=== PATIENT | male | born 1935 | race Caucasian/White ===

== ENCOUNTER 2017-08-04 17:50 | Emergency (ER) | payer MEDICARE, OTHER ==
[2017-08-04] MEDS ORDERED: fentaNYL 100 MCG/2 ML SDV IVPUSH ONE (18:59)
--- NOTE | 2017-08-04 19:04 | EDM.PDOC ---
ED HPI GENERAL MEDICAL PROBLEM - General Chief Complaint: Abdominal Pain Stated Complaint: MEDICAL [facility]IA [facility] Time Seen by Provider: 08/04/17 18:52 Source of Information: Reports: Patient, RN Notes Reviewed History Limitations: Reports: No Limitations - History of Present Illness INITIAL COMMENTS - FREE TEXT/NARRATIVE: 82-year-old gentleman presents to the emergency department with complaint of epigastric pain via EMS services, he states he's had pain for about a week is progressively gotten worse, his biggest issue is when he takes a deep breath he has very sharp stabbing pain and will get some epigastric discomfort as well, he still passing gas no nausea or vomiting no diaphoresis Chest Pain Score (Numeric/FACES): 7 - Related Data Allergies Allergy/AdvReac Type Severity Reaction Status Date / Time acetaminophen [From Tylox] Allergy Confusion Verified 08/04/17 20:12 oxycodone Allergy Confusion Verified 08/04/17 18:05 Home Meds: Home Meds Ascorbate Calcium [Vitamin C] 500 mg PO DAILY 08/04/17 [History] Ascorbic Acid [Vitamin C] 500 mg PO DAILY 08/04/17 [History] Aspirin 81 mg PO DAILY 08/04/17 [History] Budesonide [Pulmicort] 0.5 mg INH BID 08/04/17 [History] Calcium Carbonate [Calcium] 60 mg PO DAILY 08/04/17 [History] Cholecalciferol (Vitamin D3) [Vitamin D3] 1,000 mg PO DAILY 08/04/17 [History] Cholecalciferol (Vitamin D3) [Vitamin D3] 1,000 unit PO DAILY 08/04/17 [History] Megestrol [Megace] 1 tab PO QAM 08/04/17 [History] Metoprolol Tartrate 1 tab PO DAILY 08/04/17 [History] Multivitamin [Multivitamins] 1 tab PO DAILY 08/04/17 [History] Omeprazole 2 tab PO QAM 08/04/17 [History] Venlafaxine HCl [Venlafaxine ER] 1 cap PO QAM 08/04/17 [History] Vitamin E 400 mg PO DAILY 08/04/17 [History] Past Medical History HEENT History: Reports: Hard of Hearing, Impaired Vision Respiratory History: Reports: COPD Genitourinary History: Reports: Prostate Disorder Musculoskeletal History: Reports: Arthritis 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 Oncologic (Cancer) History: Reports: Prostate - Past Surgical History Other Cardiovascular Surgeries/Procedures: aortic anurism Male Surgical History: Reports: Prostatectomy Other Male Surgeries/Procedures: testivles removed from cancer Musculoskeletal Surgical History: Reports: Arthroscopic Knee, Hip Replacement, Knee Replacement Social & Family History - Tobacco Use Smoking Status *Q: Never Smoker - Caffeine Use Caffeine Use: Reports: Coffee - Recreational Drug Use Recreational Drug Use: No ED ROS GENERAL - Review of Systems Review Of Systems: See Below Constitutional: Reports: No Symptoms HEENT: Reports: No Symptoms Respiratory: Reports: Shortness of Breath. Denies: Cough, Sputum Cardiovascular: Reports: Chest Pain (With a deep breath) GI/Abdominal: Reports: Abdominal Pain (Epigastric region), Flatus. Denies: Nausea, Vomiting : Reports: No Symptoms Musculoskeletal: Reports: No Symptoms Skin: Reports: No Symptoms Neurological: Reports: No Symptoms ED EXAM, GENERAL - Physical Exam Exam: See Below Exam Limited By: No Limitations General Appearance: Alert, WD/WN, No Apparent Distress Eye Exam: Bilateral Eye: Normal Inspection Nose: Normal Inspection, Normal Mucosa, No Blood Throat/Mouth: Normal Inspection, Normal Lips, Normal Gums, Normal Oropharynx, Normal Voice, No Airway Compromise, Other (Dentures) Head: Atraumatic, Normocephalic Neck: Normal Inspection, Supple, Non-Tender, Full Range of Motion Respiratory/Chest: No Respiratory Distress, No Accessory Muscle Use, Chest Non- Tender, Decreased Breath Sounds Cardiovascular: Regular Rate, Rhythm, No Murmur GI/Abdominal: Soft, Non-Tender Extremities: Normal Inspection, Normal Range of Motion, Non-Tender, No Pedal Edema Course - Vital Signs Last Recorded V/S: Last Vital Signs Temp 98.2 F 08/04/17 18:11 Pulse 74 08/04/17 21:01 Resp 21 H 08/04/17 21:01 BP 148/97 H 08/04/17 21:01 Pulse Ox 100 08/04/17 21:01 - Orders/Labs/Meds Orders: Active Orders 24 hr Category Date Time Status Cardiac Monitoring [RC] .As Directed Care 08/04/17 18:58 Active Peripheral IV Care [RC] . DIRECTED Care 08/04/17 18:59 Active Ang Chest [CT] Stat Exams 08/04/17 20:03 Taken Chest 1V Frontal [CR] Stat Exams 08/04/17 18:59 Taken Iopamidol [Isovue-370 (76%)] Med 08/04/17 20:15 Active 100 ml IV . DIRECTED Sodium Chloride 0.9% [Normal Saline] 80 ml Med 08/04/17 20:15 Active IV ASDIRECTED Sodium Chloride 0.9% [Saline Flush] Med 08/04/17 18:58 Active 10 ml FLUSH ASDIRECTED PRN Peripheral IV Insertion Adult [OM.PC] Stat Oth 08/04/17 18:58 Ordered Saline Lock Insert [OM.PC] Stat Oth 08/04/17 18:58 Ordered Medication Orders Sodium Chloride (Normal Saline) 80 mls @ 3 mls/sec IV ASDIRECTED MEERA Last Admin: 08/04/17 21:00 Dose: 3 mls/sec Iopamidol (Isovue-370 (76%)) 100 ml IV . DIRECTED [facility] Last Admin: 08/04/17 21:00 Dose: 100 ml Sodium Chloride (Saline Flush) 10 ml FLUSH ASDIRECTED PRN PRN Reason: Keep Vein Open Last Admin: 08/04/17 21:00 Dose: 10 ml Admin: 08/04/17 19:06 Dose: 10 ml Labs: Laboratory Tests 08/04/17 08/04/17 08/04/17 Range/Units 18:58 18:58 18:58 WBC 5.9 (4.5-11.0) K/uL RBC 4.55 (4.30-5.90) M/uL Hgb 13.7 (12.0-15.0) g/dL Hct 42.0 (40.0-54.0) % MCV 92 (80-98) fL MCH 30 (27-31) pg MCHC 33 (32-36) % Plt Count 225 (150-400) K/uL Neut % (Auto) 73 H (36-66) % Lymph % (Auto) 15 L (24-44) % [place] % (Auto) 10 H (2-6) % Eos % (Auto) 3 (2-4) % Baso % (Auto) 0 (0-1) % D-Dimer, Quantitative 1830 H (0.0-400.0) ng/mL Sodium 140 (140-148) mmol/L Potassium 4.1 (3.6-5.2) mmol/L Chloride 105 (100-108) mmol/L Carbon Dioxide 32 (21-32) mmol/L Anion Gap 3.4 L (5.0-14.0) mmol/L BUN 20 H (7-18) mg/dL Creatinine 1.3 (0.8-1.3) mg/dL Est Cr Clr Drug Dosing 41.61 mL/min Estimated GFR (MDRD) 53 L (>60) Glucose 84 (74-106) mg/dL Lactic Acid (0.4-2.0) mmol/L Calcium 9.3 (8.5-10.1) mg/dL Total Bilirubin 0.4 (0.2-1.0) mg/dL AST 20 (15-37) U/L ALT 21 (12-78) U/L Alkaline Phosphatase 87 (46-116) U/L Troponin I < 0.017 (0.000-0.056) ng/mL NT-Pro-B Natriuret Pep 264 (5-450) pg/mL Total Protein 7.4 (6.4-8.2) g/dL Albumin 3.3 L (3.4-5.0) g/dL Globulin 4.1 H (2.3-3.5) g/dL Albumin/Globulin Ratio 0.8 L (1.2-2.2) 08/04/17 Range/Units 18:58 WBC (4.5-11.0) K/uL RBC (4.30-5.90) M/uL Hgb (12.0-15.0) g/dL Hct (40.0-54.0) % MCV (80-98) fL MCH (27-31) pg MCHC (32-36) % Plt Count (150-400) K/uL Neut % (Auto) (36-66) % Lymph % (Auto) (24-44) % [place] % (Auto) (2-6) % Eos % (Auto) (2-4) % Baso % (Auto) (0-1) % D-Dimer, Quantitative (0.0-400.0) ng/mL Sodium (140-148) mmol/L Potassium (3.6-5.2) mmol/L Chloride (100-108) mmol/L Carbon Dioxide (21-32) mmol/L Anion Gap (5.0-14.0) mmol/L BUN (7-18) mg/dL Creatinine (0.8-1.3) mg/dL Est Cr Clr Drug Dosing mL/min Estimated GFR (MDRD) (>60) Glucose (74-106) mg/dL Lactic Acid 1.4 (0.4-2.0) mmol/L Calcium (8.5-10.1) mg/dL Total Bilirubin (0.2-1.0) mg/dL AST (15-37) U/L ALT (12-78) U/L Alkaline Phosphatase (46-116) U/L Troponin I (0.000-0.056) ng/mL NT-Pro-B Natriuret Pep (5-450) pg/mL Total Protein (6.4-8.2) g/dL Albumin (3.4-5.0) g/dL Globulin (2.3-3.5) g/dL Albumin/Globulin Ratio (1.2-2.2) Meds: Medications Generic Name Dose Route Start Last Admin Trade Name Freq PRN Reason Stop Dose Admin Sodium Chloride 80 mls @ 3 mls/sec 08/04/17 20:15 08/04/17 21:00 Normal Saline IV 3 mls/sec ASDIRECTED MEERA Administration Iopamidol 100 ml 08/04/17 20:15 08/04/17 21:00 Isovue-370 (76%) IV 100 ml . DIRECTED MEERA Administration Sodium Chloride 10 ml 08/04/17 18:58 08/04/17 21:00 Saline Flush FLUSH 10 ml ASDIRECTED PRN Administration Keep Vein Open Discontinued Medications Generic Name Dose Route Start Last Admin Trade Name Freq PRN Reason Stop Dose Admin Fentanyl 50 mcg 08/04/17 18:59 08/04/17 19:05 Sublimaze IVPUSH 08/04/17 19:00 50 mcg ONETIME ONE Administration Departure - Departure Time of Disposition: 21:53 Disposition: Home, Self-Care 01 Condition: Fair Clinical Impression: COPD exacerbation Referrals: PCP,None [Primary Care Provider] - Forms: ED Department Discharge Additional Instructions: Take full course of antibiotics, take full course of steroids, use ibuprofen for baseline pain control use hydrocodone for breakthrough pain, please follow- up with your primary care provider for reevaluation in the next 2-3 days - My Orders Last 24 Hours: My Active Orders 08/04/17 18:58 Cardiac Monitoring [RC] .As Directed Sodium Chloride 0.9% [Saline Flush] 10 ml FLUSH ASDIRECTED PRN Peripheral IV Insertion Adult [OM.PC] Stat Saline Lock Insert [OM.PC] Stat 08/04/17 18:59 Peripheral IV Care [RC] . DIRECTED Chest 1V Frontal [CR] Stat 08/04/17 20:03 Ang Chest [CT] Stat 08/04/17 20:15 Iopamidol [Isovue-370 (76%)] 100 ml IV . DIRECTED Sodium Chloride 0.9% [Normal Saline] 80 ml IV ASDIRECTED - Assessment/Plan Last 24 Hours: My Active Orders 08/04/17 18:58 Cardiac Monitoring [RC] .As Directed Sodium Chloride 0.9% [Saline Flush] 10 ml FLUSH ASDIRECTED PRN Peripheral IV Insertion Adult [OM.PC] Stat Saline Lock Insert [OM.PC] Stat 08/04/17 18:59 Peripheral IV Care [RC] . DIRECTED Chest 1V Frontal [CR] Stat 08/04/17 20:03 Ang Chest [CT] Stat 08/04/17 20:15 Iopamidol [Isovue-370 (76%)] 100 ml IV . DIRECTED Sodium Chloride 0.9% [Normal Saline] 80 ml IV ASDIRECTED Plan: Assessment Acuity = acute Site and laterality = COPD exacerbation Etiology = unclear etiology Manifestations = none Location of injury = Home Lab values = CBC unremarkable, [place] [id number] unclear significance, troponin is negative, BMP within normal limits remainder CMP within normal limits CT scan of the chest shows no acute process no pulmonary embolism Plan I did review lab work CT scan results with him because of his history of COPD I think it's worth a trial of antibiotics and prednisone along with some pain medication for deep breath, he received fentanyl in the emergency department which provided good relief he'll follow-up with primary care in the next 2-3 days for reevaluation, prescription written for azithromycin 5 day course, prednisone tapering dose and hydrocodone 5/325 one tablet by mouth 3 times a day when necessary total #6 This note was dictated using [employer] voice recognition software please call with any questions on syntax or grammar.
[2017-08-04] MEDS: Sodium Chloride 0.9% 10 ML Syringe FLUSH PRN ×2 (19:06→21:00)
[2017-08-04] MEDS ORDERED: Iopamidol 755 Mg/ML 100 ML Bottle IV SCH (20:15)
[2017-08-04] MEDS ORDERED: Sodium Chloride 0.9% 80 ML IV SCH (20:15)
--- NOTE | 2017-08-05 08:49 | CR ---
CHEST: Portable CLINICAL HISTORY:Elevated d-dimer COMPARISON:None FINDINGS: There is less than optimal inspiration. This exaggerates basilar lung markings. There is s ome generalized interstitial prominence. Some of this is chronic. IMPRESSION: Prominent interstitial markings. Some of this is likely chronic the such is patchy fibro sis and scarring. It is exaggerated by poor inspiratory level
== END 2017-08-04 22:24 | disposition home or self-care (01) ==
LOC: JP.ED 17:50
DX: J44.1 Chronic obstructive pulmonary disease with (acute) exacerbation (principal); Z88.6 Allergy status to analgesic agent; Z88.5 Allergy status to narcotic agent; Z79.82 Long term (current) use of aspirin; Z79.899 Other long term (current) drug therapy
CPT/HCPCS: 36415; 71045; 71275; 80053; 83605; 83880; 84484; 85025; 85379; 96374; 99285; J3010; J7030; J7050; Q9967; 99284

== ENCOUNTER 2019-10-09 17:36 | Emergency (ER) | payer MEDICAID, MEDICARE ==
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
[2019-10-09] MEDS ORDERED: predniSONE 20 MG Tab PO ONE (19:31)
== END 2019-10-09 19:59 | disposition home or self-care (01) ==
LOC: JP.ED 17:36
DX: M35.3 Polymyalgia rheumatica (principal); J44.9 Chronic obstructive pulmonary disease, unspecified; M19.90 Unspecified osteoarthritis, unspecified site; I45.10 Unspecified right bundle-branch block; Z88.6 Allergy status to analgesic agent; Z88.5 Allergy status to narcotic agent; Z79.899 Other long term (current) drug therapy; Z79.82 Long term (current) use of aspirin
CPT/HCPCS: 36415; 80048; 84484; 85027; 85651; 93005; 99285; J7512

== ENCOUNTER 2019-10-23 15:05 | Inpatient (IN) | payer MEDICARE ==
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
[2019-10-23] MEDS ORDERED: Magnesium Hydroxide 400 MG/5 ML Susp 30 ML Cup PO PRN (18:19)
[2019-10-23] MEDS ORDERED: Ondansetron 4 MG/2 ML SDV IV PRN (18:19)
[2019-10-23] MEDS ORDERED: Ondansetron 4 MG Tab.DIS PO PRN (18:19)
[2019-10-23] MEDS ORDERED: Albuterol 0.083% 2.5 MG/3 ML Neb Soln NEB PRN (18:19)
[2019-10-23] MEDS ORDERED: LORazepam 2 MG/ML SDV IVPUSH PRN (18:19)
[2019-10-23] MEDS: Albuterol/Ipratropium 3.0-0.5 MG/3 ML Neb Soln NEB SCH (20:22)
[2019-10-23] MEDS: Melatonin 3 MG Tab PO SCH (20:22)
[2019-10-23] MEDS ORDERED: Ketoconazole 2% Crm 30 GM Tube TOP PRN (21:05)
[2019-10-23] MEDS: Acetaminophen/HYDROcodone 325-5 MG Tab PO PRN (21:45)
[2019-10-23] MEDS: Donepezil 10 MG Tab PO SCH (21:46)
[2019-10-24] MEDS: Albuterol/Ipratropium 3.0-0.5 MG/3 ML Neb Soln NEB SCH ×4 (07:31→20:42)
[2019-10-24] MEDS: Venlafaxine 75 MG Cap.ER PO SCH (08:51)
[2019-10-24] MEDS: Cholecalciferol (Vitamin D3) 25 MCG Tab PO SCH (08:52)
[2019-10-24] MEDS: Aspirin 81 MG Tab.Chew PO SCH (08:52)
[2019-10-24] MEDS: Ascorbic Acid 500 MG Tab PO SCH (08:52)
[2019-10-24] MEDS: Lidocaine 5% 700 MG Patch TOP SCH (08:52)
[2019-10-24] MEDS: Pantoprazole 40 MG Tab.CR PO SCH (08:52)
[2019-10-24] MEDS: Megestrol 40 MG Tab PO SCH (08:52)
[2019-10-24] MEDS: Multivitamins with Iron/Calcium/Folic Acid/Minerals Tab PO SCH (08:52)
[2019-10-24] MEDS: Calcium Carbonate 500 MG Tab.Chew PO SCH (08:52)
[2019-10-24] MEDS: Acetaminophen/HYDROcodone 325-5 MG Tab PO PRN (08:53)
[2019-10-24] MEDS ORDERED: VITAMIN E 400 MG PO SCH (09:00)
[2019-10-24] MEDS ORDERED: Tiotropium Bromide 4 GM Inhalation Spray INH SCH (09:00)
[2019-10-24] MEDS ORDERED: Budesonide 0.5 MG/2 ML Neb Susp INH SCH (09:00)
[2019-10-24] MEDS ORDERED: predniSONE 10 MG Tab PO SCH (09:00)
[2019-10-24] MEDS: Budesonide 0.5 MG/2 ML Neb Susp INH SCH ×2 (09:07→21:11)
[2019-10-24] MEDS: Tiotropium Bromide 4 GM Inhalation Spray INH SCH (09:08)
[2019-10-24] MEDS: Metoprolol Tartrate 25 MG Tab PO SCH (11:36)
--- NOTE | 2019-10-24 12:11 | PCM.PN ---
- General Info Date of Service: 10/24/19 Subjective Update: No acute issues overnight. Pain is controlled at this time. Pain does increase when he moves around but overall pain is very tolerable. Vitals are stable. Baseline labs unremarkable last night. No behavior issues. Respiratory status stable. Functional Status: Reports: Pain Controlled, Tolerating Diet - Review of Systems General: Denies: Fever - Patient Data Vitals - Most Recent: Last Vital Signs Temp 37.0 C 10/24/19 10:06 Pulse 91 10/24/19 11:36 Resp 18 10/24/19 10:06 BP 115/76 10/24/19 11:36 Pulse Ox 95 10/24/19 11:15 Weight - Most Recent: 83.915 kg I&O - Last 24 Hours: Intake & Output 10/23/19 10/24/19 10/24/19 22:59 06:59 14:59 Intake Total 296 910 Output Total 225 100 Balance -225 196 910 Lab Results Last 24 Hours: Laboratory Results - last 24 hr 10/23/19 10/23/19 Range/Units 18:25 18:25 WBC 9.6 (4.5-11.0) K/uL RBC 4.56 (4.30-5.90) M/uL Hgb 12.8 (12.0-15.0) g/dL Hct 40.9 (40.0-54.0) % MCV 90 (80-98) fL MCH 28 (27-31) pg MCHC 31 L (32-36) % Plt Count 69 L (150-400) K/uL Sodium 143 (140-148) mmol/L Potassium 4.5 (3.6-5.2) mmol/L Chloride 105 (100-108) mmol/L Carbon Dioxide 31 (21-32) mmol/L Anion Gap 6.7 (5.0-14.0) mmol/L BUN 19 H (7-18) mg/dL Creatinine 1.4 H (0.8-1.3) mg/dL Est Cr Clr Drug Dosing 35.41 mL/min Estimated GFR (MDRD) 48 L (>60) Glucose 130 H (74-106) mg/dL Calcium 9.5 (8.5-10.1) mg/dL Med Orders - Current: Current Medications Hydrocodone Bitart/Acetaminophen ([place] 325-5 Mg) 1 tab PO Q4H PRN PRN Reason: Pain Last Admin: 10/24/19 08:53 Dose: 1 tab Documented by: Albuterol (Proventil Neb Soln) 2.5 mg NEB Q4H PRN PRN Reason: Shortness Of Breath/wheezing Albuterol/Ipratropium (Duoneb 3.0-0.5 Mg/3 Ml) 3 ml NEB QIDRT [facility] Last Admin: 10/24/19 11:14 Dose: 3 ml Documented by: Ascorbic Acid (Vitamin C) 500 mg PO DAILY [facility] Last Admin: 10/24/19 08:52 Dose: 500 mg Documented by: Aspirin (Aspirin) 81 mg PO DAILY [facility] Last Admin: 10/24/19 08:52 Dose: 81 mg Documented by: Budesonide (Pulmicort) 0.5 mg INH BIDRT [facility] Last Admin: 10/24/19 09:07 Dose: 0.5 mg Documented by: Calcium Carbonate/Glycine (Tums) 500 mg PO DAILY [facility] Last Admin: 10/24/19 08:52 Dose: 500 mg Documented by: Cholecalciferol (Vitamin D3) 25 mcg PO DAILY [facility] Last Admin: 10/24/19 08:52 Dose: 25 mcg Documented by: Donepezil HCl (Aricept) 10 mg PO BEDTIME [facility] Last Admin: 10/23/19 21:46 Dose: 10 mg Documented by: Ketoconazole (Nizoral 2% Crm) 0 gm TOP DAILY PRN PRN Reason: Rash Lidocaine (Lidoderm 5%) 700 mg TOP DAILY [facility] Last Admin: 10/24/19 08:52 Dose: 700 mg Documented by: Lorazepam (Ativan) 0.5 mg IVPUSH Q4H PRN PRN Reason: Nausea/Vomiting Magnesium Hydroxide (Milk Of Magnesia) 30 ml PO Q12H PRN PRN Reason: Constipation Megestrol Acetate (Megace) 40 mg PO QAM [facility] Last Admin: 10/24/19 08:52 Dose: 40 mg Documented by: Melatonin (Melatonin) 9 mg PO BEDTIME [facility] Last Admin: 10/23/19 20:22 Dose: 9 mg Documented by: Metoprolol Tartrate (Lopressor) 25 mg PO DAILY [facility] Last Admin: 10/24/19 11:36 Dose: 25 mg Documented by: Miscellaneous Information (Remove Patch) 1 ea TRDERM BEDTIME [facility] Multivitamins/Minerals (Thera M Plus) 1 tab PO DAILY [facility] Last Admin: 10/24/19 08:52 Dose: 1 tab Documented by: Non-Formulary Medication (Vitamin E [Vitamin E]) 400 mg PO DAILY [facility] Ondansetron HCl (Zofran) 4 mg IV Q6H PRN PRN Reason: Nausea/Vomiting Ondansetron HCl (Zofran Odt) 4 mg PO Q6H PRN PRN Reason: Nausea able to take PO Pantoprazole Sodium (Protonix) 40 mg PO ACBREAKFAST [facility] Last Admin: 10/24/19 08:52 Dose: 40 mg Documented by: Prednisone (Prednisone) 10 mg PO DAILY [facility] Last Admin: 10/24/19 08:51 Dose: 10 mg Documented by: Senna/Docusate Sodium (Senna Plus) 1 tab PO BID PRN PRN Reason: Constipation Last Admin: 10/24/19 08:53 Dose: 1 tab Documented by: Tiotropium [place] (Spiriva Respimat) 0 gm INH DAILYRT [facility] Last Admin: 10/24/19 09:08 Dose: 4 gm Documented by: Venlafaxine HCl (Effexor Xr) 150 mg PO QAM [facility] Last Admin: 10/24/19 08:51 Dose: 150 mg Documented by: Discontinued Medications Budesonide (Pulmicort) 0.5 mg INH BID [facility] Non-Formulary Medication (Donepezil [Aricept]) 10 mg PO BEDTIME [facility] - Exam Quality Assessment: Supplemental Oxygen General: Alert, Oriented, No Acute Distress Lungs: Normal Respiratory Effort GI/Abdominal Exam: Soft, No Distention Extremities: No Pedal Edema Skin: Warm, Dry. No: Ecchymosis Psy/Mental Status: Alert, Normal Affect Sepsis Event Note - Evaluation Sepsis Screening Result: No Definite Risk - Focused Exam Vital Signs: Vital Signs Temp Pulse Pulse Resp BP BP Pulse Ox 10/24/19 11:36 91 115/76 10/24/19 11:15 91 10/24/19 10:06 37.0 C 97 18 115/76 94 L 10/24/19 09:11 99 10/24/19 07:32 85 10/24/19 07:00 37.2 C 84 18 148/82 H 93 L 10/24/19 03:50 37.4 C 79 14 143/74 H 94 L Pulse Ox 10/24/19 11:36 10/24/19 11:15 95 10/24/19 10:06 10/24/19 09:11 96 10/24/19 07:32 95 10/24/19 07:00 10/24/19 03:50 - Problem List & Annotations (1) Periprosthetic fracture around internal prosthetic left hip joint SNOMED Code(s): 946184067, 332076437 Code(s): M97.02XA - PERIPROSTH FRACTURE AROUND INTERNAL PROSTH L HIP JT, INIT Status: Acute Current Visit: Yes Qualifiers: Encounter type: initial encounter Qualified Code(s): M97.02XA - Periprosthetic fracture around internal prosthetic left hip joint, initial encounter; T84.041A - Periprosthetic fracture around internal prosthetic left hip joint, initial encounter (2) Pulmonary fibrosis SNOMED Code(s): 22101775 Code(s): J84.10 - PULMONARY FIBROSIS, UNSPECIFIED Status: Chronic Current Visit: Yes (3) Chronic respiratory failure with hypoxia Status: Chronic Current Visit: No (4) PMR (polymyalgia rheumatica) SNOMED Code(s): 71446646 Code(s): M35.3 - POLYMYALGIA RHEUMATICA Status: Acute Current Visit: No (5) Late onset Alzheimer's disease with behavioral disturbance SNOMED Code(s): 159009129 Code(s): G30.1 - ALZHEIMER'S DISEASE WITH LATE ONSET; F02.81 - DEMENTIA IN OTH DISEASES CLASSD ELSWHR W BEHAVIORAL DISTURB Status: Chronic Current Visit: No - Problem List Review Problem List Initiated/Reviewed/Updated: Yes - My Orders Last 24 Hours: My Active Orders 10/23/19 Dinner Regular Diet [DIET] 10/23/19 17:36 Resuscitation Status Routine 10/23/19 18:19 Acetaminophen/HYDROcodone [[place] 325-5 MG] 1 tab PO Q4H PRN Albuterol [Proventil Neb Soln] 2.5 mg NEB Q4H PRN Docusate Sodium/Sennosides [Senna Plus] 1 tab PO BID PRN LORazepam [Ativan] 0.5 mg IVPUSH Q4H PRN Magnesium Hydroxide [Milk of Magnesia] 30 ml PO Q12H PRN Ondansetron [Zofran ODT] 4 mg PO Q6H PRN Ondansetron [Zofran] 4 mg IV Q6H PRN 10/23/19 18:19 Patient Status [ADT] Routine Bedrest Bedside Commode [RC] ASDIRECTED Intake and Output [RC] QSHIFT Notify Provider Vital Signs [RC] ASDIRECTED Oxygen Therapy [RC] PRN RT Aerosol Therapy [RC] ASDIRECTED VTE/DVT Education [RC] Per Unit Routine Vital Signs [RC] Q4H Sequential Compression Device [OM.PC] Routine Weight bearing status [OM.PC] Routine 10/23/19 21:00 Albuterol/Ipratropium [DuoNeb 3.0-0.5 MG/3 ML] 3 ml NEB QIDRT Donepezil [Aricept] 10 mg PO BEDTIME Melatonin 9 mg PO BEDTIME 10/23/19 21:05 Ketoconazole [Nizoral 2% Crm] 0 gm TOP DAILY PRN 10/24/19 07:30 Pantoprazole [ProTONIX] 40 mg PO ACBREAKFAST 10/24/19 07:45 Budesonide [Pulmicort] 0.5 mg INH BIDRT 10/24/19 08:00 Tiotropium [place] [Spiriva Respimat] 0 gm INH DAILYRT 10/24/19 09:00 Ascorbic Acid [Vitamin C] 500 mg PO DAILY Aspirin 81 mg PO DAILY Calcium Carbonate [Tums] 500 mg PO DAILY Cholecalciferol (Vitamin D3) [Vitamin D3] 25 mcg PO DAILY Lidocaine 5% [Lidoderm 5%] 700 mg TOP DAILY Megestrol [Megace] 40 mg PO QAM Metoprolol Tartrate [Lopressor] 25 mg PO DAILY Multivitamins w-Iron/Ca/FA/Min [Thera M Plus] 1 tab PO DAILY Venlafaxine [Effexor XR] 150 mg PO QAM Vitamin E [Vitamin E] 400 mg PO DAILY predniSONE 10 mg PO DAILY 10/24/19 21:00 Remove Patch 1 ea TRDERM BEDTIME 10/25/19 07:00 PT Evaluation and Treatment [CONS] Routine - Plan Plan:: ASSESSMENT AND PLAN - Periprosthetic fracture of the left hip-status post COLT and subsequent redo of the COLT who suffered a fracture around the prosthesis after a fall at home today. Orthopedics have been consulted and they recommend nonweightbearing for potentially 6 months to allow the fracture to heal. Pain control acceptable so far. -Pain control -Nonweightbearing left leg -Physical therapy to the extent that he can participate -he will need halfway placement Pulmonary fibrosis-complicated by chronic respiratory failure. -Supplement oxygen Polymyalgia rheumatica-currently receiving 10 mg of prednisone daily. Late onset Alzheimer's dementia without behavioral disturbance-seems to be fairly mild at this time. -Continue home meds Maintenance issues - - DVT prophylaxis -mechanical - GI prophylaxis -PPI - Nutrition -regular diet - Kat catheter -not indicated CODE STATUS -DNR/DNI Admission justification -this patient will be admitted for inpatient services and is medically appropriate meeting medical necessity for inpatient admission as outlined in my documentation. I reasonably expect the patient will require inpatient services that span a period time over 2 midnights. I reasonably expect this patient to be discharged or transferred within 96 hours [facility] Disposition -I would anticipate discharge to a prison facility after the hospital stay Primary care physician -Dr. Navjot Ricci M.D.
[2019-10-24] MEDS: Donepezil 10 MG Tab PO SCH (20:39)
[2019-10-24] MEDS: Melatonin 3 MG Tab PO SCH (20:39)
[2019-10-24] MEDS ORDERED: DONEPEZIL 10 MG PO SCH (21:00)
[2019-10-25] MEDS: Budesonide 0.5 MG/2 ML Neb Susp INH SCH ×2 (07:00→20:03)
[2019-10-25] MEDS: Albuterol/Ipratropium 3.0-0.5 MG/3 ML Neb Soln NEB SCH ×4 (07:00→20:03)
[2019-10-25] MEDS: Tiotropium Bromide 4 GM Inhalation Spray INH SCH (07:01)
[2019-10-25] MEDS: Cholecalciferol (Vitamin D3) 25 MCG Tab PO SCH (08:45)
[2019-10-25] MEDS: Venlafaxine 75 MG Cap.ER PO SCH (08:45)
[2019-10-25] MEDS: Metoprolol Tartrate 25 MG Tab PO SCH (08:45)
[2019-10-25] MEDS: Multivitamins with Iron/Calcium/Folic Acid/Minerals Tab PO SCH (08:45)
[2019-10-25] MEDS: Calcium Carbonate 500 MG Tab.Chew PO SCH (08:45)
[2019-10-25] MEDS: Ascorbic Acid 500 MG Tab PO SCH (08:45)
[2019-10-25] MEDS: Aspirin 81 MG Tab.Chew PO SCH (08:46)
[2019-10-25] MEDS: Pantoprazole 40 MG Tab.CR PO SCH (08:46)
[2019-10-25] MEDS: Megestrol 40 MG Tab PO SCH (08:46)
[2019-10-25] MEDS: Lidocaine 5% 700 MG Patch TOP SCH (08:47)
[2019-10-25] MEDS: VITAMIN E 400 MG PO SCH (08:48)
--- NOTE | 2019-10-25 09:33 | CR ---
Hip Min 2V or 3V w Pelvis Lt CLINICAL HISTORY: Fall, pain FINDINGS: Patient has a bilateral total left hip arthroplasties. There is a minimally displaced subtrochanteric fracture. Bones appear osteopenic IMPRESSION: Bilateral total hip arthroplasties Minimally displaced subtrochanteric fracture left femur
--- NOTE | 2019-10-25 17:02 | PCM.PN ---
- General Info Date of Service: 10/25/19 Subjective Update: Mr. Baez is been stable since yesterday, pain control adequate. He has been working with physical therapy and is awaiting safe discharge plan to custodial. Functional Status: Reports: Tolerating Diet, Urinating - Review of Systems General: Reports: Weakness. Denies: Fever, Chills Pulmonary: Reports: No Symptoms Cardiovascular: Reports: No Symptoms Gastrointestinal: Reports: No Symptoms Musculoskeletal: Reports: Other (Left thigh pain) - Patient Data Vitals - Most Recent: Last Vital Signs Temp 98.8 F 10/25/19 14:28 Pulse 73 10/25/19 14:28 Resp 18 10/25/19 14:28 BP 121/75 10/25/19 14:28 Pulse Ox 91 L 10/25/19 14:28 Weight - Most Recent: 185 lb I&O - Last 24 Hours: Intake & Output 10/25/19 10/25/19 10/25/19 06:59 14:59 22:59 Intake Total 500 480 Output Total 575 200 Balance -75 280 Med Orders - Current: Current Medications Hydrocodone Bitart/Acetaminophen ([place] 325-5 Mg) 1 tab PO Q4H PRN PRN Reason: Pain Last Admin: 10/24/19 08:53 Dose: 1 tab Documented by: Albuterol (Proventil Neb Soln) 2.5 mg NEB Q4H PRN PRN Reason: Shortness Of Breath/wheezing Albuterol/Ipratropium (Duoneb 3.0-0.5 Mg/3 Ml) 3 ml NEB QIDRT [facility] Last Admin: 10/25/19 14:32 Dose: 3 ml Documented by: Ascorbic Acid (Vitamin C) 500 mg PO DAILY [facility] Last Admin: 10/25/19 08:45 Dose: 500 mg Documented by: Aspirin (Aspirin) 81 mg PO DAILY [facility] Last Admin: 10/25/19 08:46 Dose: 81 mg Documented by: Budesonide (Pulmicort) 0.5 mg INH BIDRT [facility] Last Admin: 10/25/19 07:00 Dose: 0.5 mg Documented by: Calcium Carbonate/Glycine (Tums) 500 mg PO DAILY [facility] Last Admin: 10/25/19 08:45 Dose: 500 mg Documented by: Cholecalciferol (Vitamin D3) 25 mcg PO DAILY [facility] Last Admin: 10/25/19 08:45 Dose: 25 mcg Documented by: Donepezil HCl (Aricept) 10 mg PO BEDTIME [facility] Last Admin: 10/24/19 20:39 Dose: 10 mg Documented by: Ketoconazole (Nizoral 2% Crm) 0 gm TOP DAILY PRN PRN Reason: Rash Lidocaine (Lidoderm 5%) 700 mg TOP DAILY [facility] Last Admin: 10/25/19 08:47 Dose: 700 mg Documented by: Lorazepam (Ativan) 0.5 mg IVPUSH Q4H PRN PRN Reason: Nausea/Vomiting Magnesium Hydroxide (Milk Of Magnesia) 30 ml PO Q12H PRN PRN Reason: Constipation Megestrol Acetate (Megace) 40 mg PO QAM [facility] Last Admin: 10/25/19 08:46 Dose: 40 mg Documented by: Melatonin (Melatonin) 9 mg PO BEDTIME [facility] Last Admin: 10/24/19 20:39 Dose: 9 mg Documented by: Metoprolol Tartrate (Lopressor) 25 mg PO DAILY [facility] Last Admin: 10/25/19 08:45 Dose: 25 mg Documented by: Miscellaneous Information (Remove Patch) 1 ea TRDERM BEDTIME [facility] Last Admin: 10/24/19 20:38 Dose: 1 ea Documented by: Multivitamins/Minerals (Thera M Plus) 1 tab PO DAILY [facility] Last Admin: 10/25/19 08:45 Dose: 1 tab Documented by: Ondansetron HCl (Zofran) 4 mg IV Q6H PRN PRN Reason: Nausea/Vomiting Ondansetron HCl (Zofran Odt) 4 mg PO Q6H PRN PRN Reason: Nausea able to take PO Pantoprazole Sodium (Protonix) 40 mg PO ACBREAKFAST [facility] Last Admin: 10/25/19 08:46 Dose: 40 mg Documented by: Vit E 400mg Tab ( (Ptom)) 0 each PO DAILY [facility] Last Admin: 10/25/19 08:48 Dose: Not Given Documented by: Senna/Docusate Sodium (Senna Plus) 1 tab PO BID PRN PRN Reason: Constipation Last Admin: 10/24/19 08:53 Dose: 1 tab Documented by: Tiotropium [place] (Spiriva Respimat) 0 gm INH DAILYRT [facility] Last Admin: 10/25/19 07:01 Dose: 4 gm Documented by: Venlafaxine HCl (Effexor Xr) 150 mg PO QAM [facility] Last Admin: 10/25/19 08:45 Dose: 150 mg Documented by: Discontinued Medications Budesonide (Pulmicort) 0.5 mg INH BID [facility] Non-Formulary Medication (Donepezil [Aricept]) 10 mg PO BEDTIME [facility] Prednisone (Prednisone) 10 mg PO DAILY [facility] Last Admin: 10/24/19 08:51 Dose: 10 mg Documented by: - Exam Quality Assessment: DVT Prophylaxis General: Alert, Oriented, Cooperative, Mild Distress Lungs: Clear to Auscultation, Normal Respiratory Effort Cardiovascular: Regular Rate, Regular Rhythm, No Murmurs GI/Abdominal Exam: Soft, Non-Tender, No Organomegaly, No Distention Extremities: Non-Tender, No Pedal Edema Sepsis Event Note - Evaluation Sepsis Screening Result: No Definite Risk - Focused Exam Vital Signs: Vital Signs Temp Pulse Pulse Resp BP BP Pulse Ox 10/25/19 14:28 98.8 F 73 18 121/75 91 L 10/25/19 11:00 99 F 65 16 106/78 95 10/25/19 10:53 84 10/25/19 08:45 86 140/89 10/25/19 07:01 84 10/25/19 07:00 98.7 F 86 18 140/89 97 - Problem List Review Problem List Initiated/Reviewed/Updated: Yes - My Orders Last 24 Hours: My Active Orders 10/26/19 05:00 BASIC METABOLIC PANEL,BMP [CHEM] Timed CBC WITH AUTO DIFF [HEME] Timed - Plan Plan:: ASSESSMENT AND PLAN - Periprosthetic fracture of the left hip-status post COLT and subsequent redo of the COLT who suffered a fracture around the prosthesis after a fall at home today. Orthopedics have been consulted and they recommend nonweightbearing for potentially 6 months to allow the fracture to heal. Pain control acceptable so far. -Pain control -Nonweightbearing left leg -Physical therapy to the extent that he can participate -he will need custodial placement Pulmonary fibrosis-complicated by chronic respiratory failure. -Supplement oxygen Polymyalgia rheumatica-currently receiving 10 mg of prednisone daily. Late onset Alzheimer's dementia without behavioral disturbance-seems to be fairly mild at this time. -Continue home meds Maintenance issues - - DVT prophylaxis -mechanical - GI prophylaxis -PPI - Nutrition -regular diet - Kat catheter -not indicated CODE STATUS -DNR/DNI Admission justification -this patient will be admitted for inpatient services and is medically appropriate meeting medical necessity for inpatient admission as outlined in my documentation. I reasonably expect the patient will require inpatient services that span a period time over 2 midnights. I reasonably expect this patient to be discharged or transferred within 96 hours after admission to the [facility]. Disposition -I would anticipate discharge to a [facility] facility after the hospital stay Primary care physician -Dr. Navjot Lambert
[2019-10-25] MEDS: Acetaminophen/HYDROcodone 325-5 MG Tab PO PRN (17:57)
[2019-10-25] MEDS: Donepezil 10 MG Tab PO SCH (20:03)
[2019-10-25] MEDS: Melatonin 3 MG Tab PO SCH (20:03)
[2019-10-26] MEDS: Budesonide 0.5 MG/2 ML Neb Susp INH SCH ×2 (06:59→20:39)
[2019-10-26] MEDS: Tiotropium Bromide 4 GM Inhalation Spray INH SCH (06:59)
[2019-10-26] MEDS: Albuterol/Ipratropium 3.0-0.5 MG/3 ML Neb Soln NEB SCH ×4 (06:59→20:39)
[2019-10-26] MEDS: Metoprolol Tartrate 25 MG Tab PO SCH (08:58)
[2019-10-26] MEDS: Venlafaxine 75 MG Cap.ER PO SCH (08:59)
[2019-10-26] MEDS: Pantoprazole 40 MG Tab.CR PO SCH (08:59)
[2019-10-26] MEDS: Lidocaine 5% 700 MG Patch TOP SCH (08:59)
[2019-10-26] MEDS: Cholecalciferol (Vitamin D3) 25 MCG Tab PO SCH (08:59)
[2019-10-26] MEDS: Calcium Carbonate 500 MG Tab.Chew PO SCH (08:59)
[2019-10-26] MEDS: Ascorbic Acid 500 MG Tab PO SCH (08:59)
[2019-10-26] MEDS: Aspirin 81 MG Tab.Chew PO SCH (08:59)
[2019-10-26] MEDS: Megestrol 40 MG Tab PO SCH (09:00)
[2019-10-26] MEDS: Multivitamins with Iron/Calcium/Folic Acid/Minerals Tab PO SCH (09:00)
[2019-10-26] MEDS: VITAMIN E 400 MG PO SCH (09:01)
--- NOTE | 2019-10-26 17:16 | PCM.PN ---
- General Info Date of Service: 10/26/19 Subjective Update: Mr. Baez has been stable since yesterday and is currently awaiting safe discharge plan. He has been seen and evaluated by Dr. Sharma who has recommended 3 months of nonweightbearing. Functional Status: Reports: Tolerating Diet, Urinating - Review of Systems General: Reports: No Symptoms Pulmonary: Reports: Shortness of Breath. Denies: Pleuritic Chest Pain, Cough, Sputum, Hemoptysis, Wheezing Cardiovascular: Reports: No Symptoms Gastrointestinal: Reports: No Symptoms - Patient Data Vitals - Most Recent: Last Vital Signs Temp 98.7 F 10/26/19 14:00 Pulse 88 10/26/19 14:31 Resp 18 10/26/19 14:00 BP 125/72 10/26/19 14:00 Pulse Ox 97 10/26/19 14:00 Weight - Most Recent: 185 lb 0.014 oz I&O - Last 24 Hours: Intake & Output 10/26/19 10/26/19 10/26/19 06:59 14:59 22:59 Intake Total 100 480 Output Total 400 550 Balance -300 -70 Lab Results Last 24 Hours: Laboratory Results - last 24 hr 10/26/19 10/26/19 Range/Units 05:30 05:30 WBC 6.4 (4.5-11.0) K/uL RBC 4.17 L (4.30-5.90) M/uL Hgb 12.0 (12.0-15.0) g/dL Hct 37.4 L (40.0-54.0) % MCV 90 (80-98) fL MCH 29 (27-31) pg MCHC 32 (32-36) % Plt Count 72 L (150-400) K/uL Neut % (Auto) 73 H (36-66) % Lymph % (Auto) 14 L (24-44) % [place] % (Auto) 8 H (2-6) % Eos % (Auto) 5 H (2-4) % Baso % (Auto) 0 (0-1) % Sodium 142 (140-148) mmol/L Potassium 4.1 (3.6-5.2) mmol/L Chloride 105 (100-108) mmol/L Carbon Dioxide 28 (21-32) mmol/L Anion Gap 8.7 (5.0-14.0) mmol/L BUN 23 H (7-18) mg/dL Creatinine 1.3 (0.8-1.3) mg/dL Est Cr Clr Drug Dosing 38.04 mL/min Estimated GFR (MDRD) 52 L (>60) Glucose 95 (74-106) mg/dL Calcium 8.9 (8.5-10.1) mg/dL Med Orders - Current: Current Medications Hydrocodone Bitart/Acetaminophen ([place] 325-5 Mg) 1 tab PO Q4H PRN PRN Reason: Pain Last Admin: 10/25/19 17:57 Dose: 1 tab Documented by: Albuterol (Proventil Neb Soln) 2.5 mg NEB Q4H PRN PRN Reason: Shortness Of Breath/wheezing Albuterol/Ipratropium (Duoneb 3.0-0.5 Mg/3 Ml) 3 ml NEB QIDRT [facility] Last Admin: 10/26/19 14:31 Dose: 3 ml Documented by: Ascorbic Acid (Vitamin C) 500 mg PO DAILY [facility] Last Admin: 10/26/19 08:59 Dose: 500 mg Documented by: Aspirin (Aspirin) 81 mg PO DAILY [facility] Last Admin: 10/26/19 08:59 Dose: 81 mg Documented by: Budesonide (Pulmicort) 0.5 mg INH BIDRT [facility] Last Admin: 10/26/19 06:59 Dose: 0.5 mg Documented by: Calcium Carbonate/Glycine (Tums) 500 mg PO DAILY [facility] Last Admin: 10/26/19 08:59 Dose: 500 mg Documented by: Cholecalciferol (Vitamin D3) 25 mcg PO DAILY [facility] Last Admin: 10/26/19 08:59 Dose: 25 mcg Documented by: Donepezil HCl (Aricept) 10 mg PO BEDTIME [facility] Last Admin: 10/25/19 20:03 Dose: 10 mg Documented by: Ketoconazole (Nizoral 2% Crm) 0 gm TOP DAILY PRN PRN Reason: Rash Lidocaine (Lidoderm 5%) 700 mg TOP DAILY [facility] Last Admin: 10/26/19 08:59 Dose: 700 mg Documented by: Lorazepam (Ativan) 0.5 mg IVPUSH Q4H PRN PRN Reason: Nausea/Vomiting Magnesium Hydroxide (Milk Of Magnesia) 30 ml PO Q12H PRN PRN Reason: Constipation Megestrol Acetate (Megace) 40 mg PO QAM [facility] Last Admin: 10/26/19 09:00 Dose: 40 mg Documented by: Melatonin (Melatonin) 9 mg PO BEDTIME [facility] Last Admin: 10/25/19 20:03 Dose: 9 mg Documented by: Metoprolol Tartrate (Lopressor) 25 mg PO DAILY [facility] Last Admin: 10/26/19 08:58 Dose: 25 mg Documented by: Miscellaneous Information (Remove Patch) 1 ea TRDERM BEDTIME [facility] Last Admin: 10/25/19 20:05 Dose: 1 ea Documented by: Multivitamins/Minerals (Thera M Plus) 1 tab PO DAILY [facility] Last Admin: 10/26/19 09:00 Dose: 1 tab Documented by: Ondansetron HCl (Zofran) 4 mg IV Q6H PRN PRN Reason: Nausea/Vomiting Ondansetron HCl (Zofran Odt) 4 mg PO Q6H PRN PRN Reason: Nausea able to take PO Pantoprazole Sodium (Protonix) 40 mg PO ACBREAKFAST [facility] Last Admin: 10/26/19 08:59 Dose: 40 mg Documented by: Vit E 400mg Tab ( (Ptom)) 0 each PO DAILY [facility] Last Admin: 10/26/19 09:01 Dose: Not Given Documented by: Senna/Docusate Sodium (Senna Plus) 1 tab PO BID PRN PRN Reason: Constipation Last Admin: 10/24/19 08:53 Dose: 1 tab Documented by: Tiotropium [place] (Spiriva Respimat) 0 gm INH DAILYRT [facility] Last Admin: 10/26/19 06:59 Dose: 2 gm Documented by: Venlafaxine HCl (Effexor Xr) 150 mg PO QAM [facility] Last Admin: 10/26/19 08:59 Dose: 150 mg Documented by: Discontinued Medications Budesonide (Pulmicort) 0.5 mg INH BID [facility] Non-Formulary Medication (Donepezil [Aricept]) 10 mg PO BEDTIME [facility] Prednisone (Prednisone) 10 mg PO DAILY [facility] Last Admin: 10/24/19 08:51 Dose: 10 mg Documented by: - Exam Quality Assessment: DVT Prophylaxis General: Alert, Cooperative, Mild Distress. No: Oriented Lungs: Normal Respiratory Effort, Crackles. No: Rales, Stridor, Wheezing Cardiovascular: Regular Rate, Regular Rhythm, No Murmurs GI/Abdominal Exam: Soft, Non-Tender, No Organomegaly, No Distention Extremities: No Pedal Edema Sepsis Event Note - Evaluation Sepsis Screening Result: No Definite Risk - Focused Exam Vital Signs: Vital Signs Temp Pulse Pulse Resp BP BP Pulse Ox 10/26/19 14:31 88 10/26/19 14:00 98.7 F 77 18 125/72 97 10/26/19 10:00 99.3 F 84 18 120/70 94 L 10/26/19 08:58 88 141/78 H 10/26/19 07:00 88 10/26/19 06:00 98.6 F 82 18 141/78 H 92 L - Problem List Review Problem List Initiated/Reviewed/Updated: Yes - My Orders Last 24 Hours: My Active Orders 10/25/19 17:05 Consult to Physician [CONS] Routine 10/25/19 17:06 Notify Provider Consults [RC] ASDIRECTED - Plan Plan:: ASSESSMENT AND PLAN - Periprosthetic fracture of the left hip-status post COLT and subsequent redo of the COLT who suffered a fracture around the prosthesis after a fall. Orthopedics have been consulted and they recommend nonweightbearing for potentially 3 months to allow the fracture to heal. Pain control acceptable so far. -Pain control -Nonweightbearing left leg -Physical therapy to the extent that he can participate -he will need snf placement Pulmonary fibrosis-complicated by chronic respiratory failure. -Supplement oxygen Polymyalgia rheumatica-currently receiving 10 mg of prednisone daily. Late onset Alzheimer's dementia without behavioral disturbance-seems to be fairly mild at this time. -Continue home meds Maintenance issues - - DVT prophylaxis -mechanical - GI prophylaxis -PPI - Nutrition -regular diet - Kat catheter -not indicated CODE STATUS -DNR/DNI Admission justification -this patient will be admitted for inpatient services and is medically appropriate meeting medical necessity for inpatient admission as outlined in my documentation. I reasonably expect the patient will require inpatient services that span a period time over 2 midnights. I reasonably expect this patient to be discharged or transferred within 96 hours [facility]. Disposition -I would anticipate discharge to a [facility] facility after the hospital stay Primary care physician -Dr. Navjot Lambert
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
[2019-10-26] MEDS: Melatonin 3 MG Tab PO SCH (20:40)
[2019-10-26] MEDS: Donepezil 10 MG Tab PO SCH (20:40)
[2019-10-27] MEDS: Pantoprazole 40 MG Tab.CR PO SCH (07:14)
[2019-10-27] MEDS: Albuterol/Ipratropium 3.0-0.5 MG/3 ML Neb Soln NEB SCH ×3 (07:31→14:17)
[2019-10-27] MEDS: Budesonide 0.5 MG/2 ML Neb Susp INH SCH (07:31)
[2019-10-27] MEDS: Tiotropium Bromide 4 GM Inhalation Spray INH SCH (07:32)
[2019-10-27] MEDS: Cholecalciferol (Vitamin D3) 25 MCG Tab PO SCH (08:22)
[2019-10-27] MEDS: Venlafaxine 75 MG Cap.ER PO SCH (08:22)
[2019-10-27] MEDS: Aspirin 81 MG Tab.Chew PO SCH (08:22)
[2019-10-27] MEDS: Ascorbic Acid 500 MG Tab PO SCH (08:22)
[2019-10-27] MEDS: Metoprolol Tartrate 25 MG Tab PO SCH (08:22)
[2019-10-27] MEDS: Multivitamins with Iron/Calcium/Folic Acid/Minerals Tab PO SCH (08:22)
[2019-10-27] MEDS: Megestrol 40 MG Tab PO SCH (08:23)
[2019-10-27] MEDS: Calcium Carbonate 500 MG Tab.Chew PO SCH (08:23)
[2019-10-27] MEDS: VITAMIN E 400 MG PO SCH (08:23)
[2019-10-27] MEDS: Lidocaine 5% 700 MG Patch TOP SCH (08:36)
--- NOTE | 2019-10-27 12:34 | PCM.PN ---
- General Info Date of Service: 10/27/19 Subjective Update: Mr. Baez stable since yesterday, pain control at rest has been good. He continues to experience increased pain with movement. Functional Status: Reports: Tolerating Diet, Urinating - Review of Systems General: Reports: No Symptoms Pulmonary: Reports: No Symptoms Cardiovascular: Reports: No Symptoms Gastrointestinal: Reports: No Symptoms Musculoskeletal: Reports: Other (Left hip pain) - Patient Data Vitals - Most Recent: Last Vital Signs Temp 98.0 F 10/27/19 10:31 Pulse 77 10/27/19 11:05 Resp 18 10/27/19 07:08 BP 132/83 10/27/19 10:31 Pulse Ox 93 L 10/27/19 11:05 Weight - Most Recent: 185 lb 0.014 oz I&O - Last 24 Hours: Intake & Output 10/26/19 10/27/19 10/27/19 22:59 06:59 14:59 Intake Total 490 Output Total 550 600 375 Balance -60 -600 -375 Med Orders - Current: Current Medications Hydrocodone Bitart/Acetaminophen ([place] 325-5 Mg) 1 tab PO Q4H PRN PRN Reason: Pain Last Admin: 10/25/19 17:57 Dose: 1 tab Documented by: Albuterol (Proventil Neb Soln) 2.5 mg NEB Q4H PRN PRN Reason: Shortness Of Breath/wheezing Albuterol/Ipratropium (Duoneb 3.0-0.5 Mg/3 Ml) 3 ml NEB QIDRT [facility] Last Admin: 10/27/19 11:13 Dose: 3 ml Documented by: Ascorbic Acid (Vitamin C) 500 mg PO DAILY [facility] Last Admin: 10/27/19 08:22 Dose: 500 mg Documented by: Aspirin (Aspirin) 81 mg PO DAILY [facility] Last Admin: 10/27/19 08:22 Dose: 81 mg Documented by: Budesonide (Pulmicort) 0.5 mg INH BIDRT [facility] Last Admin: 10/27/19 07:31 Dose: 0.5 mg Documented by: Calcium Carbonate/Glycine (Tums) 500 mg PO DAILY [facility] Last Admin: 10/27/19 08:23 Dose: 500 mg Documented by: Cholecalciferol (Vitamin D3) 25 mcg PO DAILY [facility] Last Admin: 10/27/19 08:22 Dose: 25 mcg Documented by: Donepezil HCl (Aricept) 10 mg PO BEDTIME [facility] Last Admin: 10/26/19 20:40 Dose: 10 mg Documented by: Ketoconazole (Nizoral 2% Crm) 0 gm TOP DAILY PRN PRN Reason: Rash Lidocaine (Lidoderm 5%) 700 mg TOP DAILY [facility] Last Admin: 10/27/19 08:36 Dose: 700 mg Documented by: Lorazepam (Ativan) 0.5 mg IVPUSH Q4H PRN PRN Reason: Nausea/Vomiting Magnesium Hydroxide (Milk Of Magnesia) 30 ml PO Q12H PRN PRN Reason: Constipation Megestrol Acetate (Megace) 40 mg PO QAM [facility] Last Admin: 10/27/19 08:23 Dose: 40 mg Documented by: Melatonin (Melatonin) 9 mg PO BEDTIME [facility] Last Admin: 10/26/19 20:40 Dose: 9 mg Documented by: Metoprolol Tartrate (Lopressor) 25 mg PO DAILY [facility] Last Admin: 10/27/19 08:22 Dose: 25 mg Documented by: Miscellaneous Information (Remove Patch) 1 ea TRDERM BEDTIME [facility] Last Admin: 10/26/19 20:42 Dose: 1 ea Documented by: Multivitamins/Minerals (Thera M Plus) 1 tab PO DAILY [facility] Last Admin: 10/27/19 08:22 Dose: 1 tab Documented by: Ondansetron HCl (Zofran) 4 mg IV Q6H PRN PRN Reason: Nausea/Vomiting Ondansetron HCl (Zofran Odt) 4 mg PO Q6H PRN PRN Reason: Nausea able to take PO Pantoprazole Sodium (Protonix) 40 mg PO ACBREAKFAST [facility] Last Admin: 10/27/19 07:14 Dose: 40 mg Documented by: Vit E 400mg Tab ( (Ptom)) 0 each PO DAILY [facility] Last Admin: 10/27/19 08:23 Dose: Not Given Documented by: Senna/Docusate Sodium (Senna Plus) 1 tab PO BID PRN PRN Reason: Constipation Last Admin: 10/24/19 08:53 Dose: 1 tab Documented by: Tiotropium [facility] (Spiriva Respimat) 0 gm INH DAILYRT [facility] Last Admin: 10/27/19 07:32 Dose: 4 gm Documented by: Venlafaxine HCl (Effexor Xr) 150 mg PO QAM [facility] Last Admin: 10/27/19 08:22 Dose: 150 mg Documented by: Discontinued Medications Budesonide (Pulmicort) 0.5 mg INH BID [facility] Non-Formulary Medication (Donepezil [Aricept]) 10 mg PO BEDTIME [facility] Prednisone (Prednisone) 10 mg PO DAILY [facility] Last Admin: 10/24/19 08:51 Dose: 10 mg Documented by: - Exam Quality Assessment: DVT Prophylaxis General: Alert, Cooperative, Mild Distress. No: Oriented Lungs: Clear to Auscultation, Normal Respiratory Effort Cardiovascular: Regular Rate, Regular Rhythm, No Murmurs GI/Abdominal Exam: Soft, Non-Tender, No Organomegaly, No Distention Extremities: Non-Tender, No Pedal Edema Sepsis Event Note - Evaluation Sepsis Screening Result: No Definite Risk - Focused Exam Vital Signs: Vital Signs Temp Pulse Pulse Resp BP BP Pulse Ox 10/27/19 11:05 77 10/27/19 10:31 98.0 F 65 132/83 85 L 10/27/19 08:22 94 144/83 H 10/27/19 07:34 91 10/27/19 07:08 97.9 F 88 18 144/83 H 94 L 10/27/19 05:00 98.2 F 79 18 159/86 H 93 L Pulse Ox 10/27/19 11:05 93 L 10/27/19 10:31 10/27/19 08:22 10/27/19 07:34 94 L 10/27/19 07:08 10/27/19 05:00 - Problem List Review Problem List Initiated/Reviewed/Updated: Yes - Plan Plan:: ASSESSMENT AND PLAN - Periprosthetic fracture of the left hip-status post COLT and subsequent redo of the COLT who suffered a fracture around the prosthesis after a fall. Orthopedics have been consulted and they recommend nonweightbearing for potentially 3 months to allow the fracture to heal. Pain control acceptable so far. -Pain control -Nonweightbearing left leg -Physical therapy to the extent that he can participate -he will need [facility] placement -Bone scan as an outpatient to evaluate for recurrent prostate carcinoma Pulmonary fibrosis-complicated by chronic respiratory failure. -Supplement oxygen Polymyalgia rheumatica-currently receiving 10 mg of prednisone daily. Late onset Alzheimer's dementia without behavioral disturbance-seems to be f airly mild at this time. -Continue home meds Maintenance issues - - DVT prophylaxis -mechanical - GI prophylaxis -PPI - Nutrition -regular diet - Kat catheter -not indicated CODE STATUS -DNR/DNI Admission justification -this patient will be admitted for inpatient services and is medically appropriate meeting medical necessity for inpatient admission as outlined in my documentation. I reasonably expect the patient will require inpatient services that span a period time over 2 midnights. I reasonably expect this patient to be discharged or transferred within 96 hours after admission to the [facility]. Disposition -I would anticipate discharge to a residential facility after the hospital stay Primary care physician -Dr. Navjot Lambert
--- NOTE | 2019-10-27 12:47 | PCM.DCSUM1 ---
Discharge Summary - Hospital Course Brief History: Mr. Baez is an 84-year-old gentleman who was admitted through the emergency department with left hip pain secondary to a periprosthetic fracture of his left femur. - Discharge Data Discharge Date: 10/27/19 Discharge Disposition: DC/Tfer to SNF 03 Condition: Fair - Referral to Home Health Primary Care Physician: Navjot Lambert MD - Discharge Diagnosis/Problem(s) (1) Periprosthetic fracture around internal prosthetic left hip joint SNOMED Code(s): 101425429, 718592291 ICD Code: M97.02XA - PERIPROSTH FRACTURE AROUND INTERNAL PROSTH L HIP JT, INIT Status: Acute Current Visit: Yes Qualifiers: Encounter type: initial encounter Qualified Code(s): M97.02XA - Periprosthetic fracture around internal prosthetic left hip joint, initial encounter; T84.041A - Periprosthetic fracture around internal prosthetic left hip joint, initial encounter (2) Pulmonary fibrosis SNOMED Code(s): 18956571 ICD Code: J84.10 - PULMONARY FIBROSIS, UNSPECIFIED Status: Chronic Current Visit: Yes (3) PMR (polymyalgia rheumatica) SNOMED Code(s): 56274350 ICD Code: M35.3 - POLYMYALGIA RHEUMATICA Status: Acute Current Visit: No (4) Chronic respiratory failure with hypoxia Status: Chronic Current Visit: No (5) Late onset Alzheimer's disease with behavioral disturbance SNOMED Code(s): 873278590 ICD Code: G30.1 - ALZHEIMER'S DISEASE WITH LATE ONSET; F02.81 - DEMENTIA IN OTH DISEASES CLASSD ELSWHR W BEHAVIORAL DISTURB Status: Chronic Current Visit: No - Patient Summary/Data Consults: Consultations 10/25/19 07:00 PT Evaluation and Treatment [CONS] Routine Please Evaluate and Treat. PT Reason for Consult: Strengthening Special Instructions: non weight bearing left leg This query below is only for informational purposes and is not editable. 10/25/19 17:05 Consult to Physician [CONS] Routine Consulting Provider: Iain Rob Courtesy Call Completed to Consulting Physician: Yes Reason for Consult: Left femur fracture Hospital Course: Mr. Baez presented to the emergency room with acute left hip pain after falling at home trying to get out of his chair. He fell sideways landing on his left hip. He had immediate pain which was mild and sharp. He sat down and rested. Pain was stable for a while but then progressed as the day went on. He did not take anything to make the pain feel better. Trying to stand on the leg made the pain significantly worse. Pain radiates into the pelvis and down towards the knee. He reports that he was otherwise feeling well. Work-up in the emergency room revealed evidence for a fracture of the left hip which has previously been replaced on 2 different occasions. This was discussed with orthopedics and they recommended a nonweightbearing status for about 3 months. Patient does not able to bear any weight and does not have a safe discharge plan. He was admitted for pain control and placement for rehab. After admission he was given IV fluids for hydration which were then discontinued after the first 24 hours. He received medication for nausea and pain as needed. He was seen by physical therapy daily and was able to transfer with assistance. He was seen and evaluated during hospital stay by Dr. Rob, for orthopedic consult. He recommended no weightbearing for a period of 3 months, follow-up appointment with Ortho 2 weeks and x-ray at that time. He also recommended that a bone scan be obtained to evaluate his history of prostate cancer, this will be obtained as an outpatient. He will be discharged to the care home because of his nonweightbearing status and will receive physical therapy there. We will resume his usual diet. - Patient Instructions Diet: Usual Diet as Tolerated Activity: As Tolerated, Non Weight Bearing (Left leg) Other/Special Instructions: Please schedule follow-up x-ray of the left femur and orthopedic appointment in 2 weeks. Please schedule outpatient bone scan to evaluate for his history of prostate cancer. - Discharge Plan *PRESCRIPTION DRUG MONITORING PROGRAM REVIEWED*: Not Applicable *COPY OF PRESCRIPTION DRUG MONITORING REPORT IN PATIENT [place]: Not Applicable Prescriptions/Med Rec: Enoxaparin [Lovenox] 30 mg SUBCUT DAILY #21 syringe Acetaminophen/HYDROcodone [[place] 325-5 MG] 1 tab PO Q4H PRN #20 tablet PRN Reason: Pain Home Medications: Home Meds Ascorbic Acid [Vitamin C] 500 mg PO DAILY 08/04/17 [History] Aspirin 81 mg PO DAILY 08/04/17 [History] Budesonide [Pulmicort] 0.5 mg INH BID 08/04/17 [History] Calcium Carbonate [Calcium] 600 mg PO DAILY 08/04/17 [History] Cholecalciferol (Vitamin D3) [Vitamin D3] 1,000 mg PO DAILY 08/04/17 [History] Megestrol [Megace] 1 tab PO QAM 08/04/17 [History] Metoprolol Tartrate 1 tab PO DAILY 08/04/17 [History] Multivitamin [Multivitamins] 1 tab PO DAILY 08/04/17 [History] Omeprazole 2 tab PO QAM 08/04/17 [History] Venlafaxine HCl [Venlafaxine ER] 150 cap PO QAM 08/04/17 [History] Vitamin E 400 mg PO DAILY 08/04/17 [History] Ipratropium/Albuterol Sulfate [Iprat-Albut 0.5-3(2.5) mg/3 ml] 3 ml IH BID 02/12/18 [History] Donepezil [Aricept] 10 mg PO BEDTIME 10/09/19 [History] Albuterol/Ipratropium [DuoNeb 3.0-0.5 MG/3 ML] 3 ml .XX Q8H 10/23/19 [History] Ketoconazole [Nizoral 2% Crm] 1 applic TOP DAILY PRN 10/23/19 [History] O2 2 l INH ASDIRECTED 10/23/19 [History] Umeclidinium Brm/Vilanterol Tr [Anoro Ellipta 62.5-25 MCG] 1 each IH DAILY 10/23/19 [History] Acetaminophen/HYDROcodone [[place] 325-5 MG] 1 tab PO Q4H PRN #20 tablet 10/27/19 [Rx] Enoxaparin [Lovenox] 30 mg SUBCUT DAILY #21 syringe 10/27/19 [Rx] Referrals: Navjot Lambert MD [Primary Care Provider] - - Discharge Summary/Plan Comment DC Time >30 min.: No - Patient Data Vitals - Most Recent: Last Vital Signs Temp 98.0 F 10/27/19 12:35 Pulse 82 10/27/19 12:35 Resp 15 10/27/19 12:35 BP 132/83 10/27/19 10:31 Pulse Ox 90 L 10/27/19 12:35 Weight - Most Recent: 185 lb 0.014 oz I&O - Last 24 hours: Intake & Output 10/26/19 10/27/19 10/27/19 22:59 06:59 14:59 Intake Total 490 Output Total 550 600 375 Balance -60 -600 -375 Med Orders - Current: Current Medications Hydrocodone Bitart/Acetaminophen ([place] 325-5 Mg) 1 tab PO Q4H PRN PRN Reason: Pain Last Admin: 10/25/19 17:57 Dose: 1 tab Documented by: Albuterol (Proventil Neb Soln) 2.5 mg NEB Q4H PRN PRN Reason: Shortness Of Breath/wheezing Albuterol/Ipratropium (Duoneb 3.0-0.5 Mg/3 Ml) 3 ml NEB QIDRT [facility] Last Admin: 10/27/19 11:13 Dose: 3 ml Documented by: Ascorbic Acid (Vitamin C) 500 mg PO DAILY [facility] Last Admin: 10/27/19 08:22 Dose: 500 mg Documented by: Aspirin (Aspirin) 81 mg PO DAILY [facility] Last Admin: 10/27/19 08:22 Dose: 81 mg Documented by: Budesonide (Pulmicort) 0.5 mg INH BIDRT [facility] Last Admin: 10/27/19 07:31 Dose: 0.5 mg Documented by: Calcium Carbonate/Glycine (Tums) 500 mg PO DAILY [facility] Last Admin: 10/27/19 08:23 Dose: 500 mg Documented by: Cholecalciferol (Vitamin D3) 25 mcg PO DAILY [facility] Last Admin: 10/27/19 08:22 Dose: 25 mcg Documented by: Donepezil HCl (Aricept) 10 mg PO BEDTIME [facility] Last Admin: 10/26/19 20:40 Dose: 10 mg Documented by: Ketoconazole (Nizoral 2% Crm) 0 gm TOP DAILY PRN PRN Reason: Rash Lidocaine (Lidoderm 5%) 700 mg TOP DAILY [facility] Last Admin: 10/27/19 08:36 Dose: 700 mg Documented by: Lorazepam (Ativan) 0.5 mg IVPUSH Q4H PRN PRN Reason: Nausea/Vomiting Magnesium Hydroxide (Milk Of Magnesia) 30 ml PO Q12H PRN PRN Reason: Constipation Megestrol Acetate (Megace) 40 mg PO QAM [facility] Last Admin: 10/27/19 08:23 Dose: 40 mg Documented by: Melatonin (Melatonin) 9 mg PO BEDTIME [facility] Last Admin: 10/26/19 20:40 Dose: 9 mg Documented by: Metoprolol Tartrate (Lopressor) 25 mg PO DAILY [facility] Last Admin: 10/27/19 08:22 Dose: 25 mg Documented by: Miscellaneous Information (Remove Patch) 1 ea TRDERM BEDTIME [facility] Last Admin: 10/26/19 20:42 Dose: 1 ea Documented by: Multivitamins/Minerals (Thera M Plus) 1 tab PO DAILY [facility] Last Admin: 10/27/19 08:22 Dose: 1 tab Documented by: Ondansetron HCl (Zofran) 4 mg IV Q6H PRN PRN Reason: Nausea/Vomiting Ondansetron HCl (Zofran Odt) 4 mg PO Q6H PRN PRN Reason: Nausea able to take PO Pantoprazole Sodium (Protonix) 40 mg PO ACBREAKFAST [facility] Last Admin: 10/27/19 07:14 Dose: 40 mg Documented by: Vit E 400mg Tab ( (Ptom)) 0 each PO DAILY [facility] Last Admin: 10/27/19 08:23 Dose: Not Given Documented by: Senna/Docusate Sodium (Senna Plus) 1 tab PO BID PRN PRN Reason: Constipation Last Admin: 10/24/19 08:53 Dose: 1 tab Documented by: Tiotropium [place] (Spiriva Respimat) [facility] Admin: 10/27/19 07:32 Dose: 4 gm Documented by: Venlafaxine HCl (Effexor Xr) 150 mg PO QAM [facility] Last Admin: 10/27/19 08:22 Dose: 150 mg Documented by: Discontinued Medications Budesonide (Pulmicort) 0.5 mg INH BID [facility] Non-Formulary Medication (Donepezil [Aricept]) 10 mg PO BEDTIME [facility] Prednisone (Prednisone) 10 mg PO DAILY [facility] Last Admin: 10/24/19 08:51 Dose: 10 mg Documented by: - Exam Quality Assessment: Reports: DVT Prophylaxis General: Reports: Alert, Cooperative, Mild Distress. Denies: Oriented Lungs: Reports: Normal Respiratory Effort, Rales (Dry rales secondary to pulmonary fibrosis). Denies: Crackles, Rhonchi, Wheezing Cardiovascular: Reports: Regular Rate, Regular Rhythm, No Murmurs GI/Abdominal Exam: Soft, Non-Tender, No Organomegaly, No Distention
== END 2019-10-27 17:02 | DRG 560 ==
LOC: JP.ED 15:05 → JP.MS 17:35
PROVIDERS: ADMIT Internal Medicine; ATTEND Hospitalist
DX: S72.332A Displaced oblique fracture of shaft of left femur, initial encounter for closed fracture (principal); W19.XXXA Unspecified fall, initial encounter; H54.7 Unspecified visual loss; H91.90 Unspecified hearing loss, unspecified ear; M97.02XA Periprosthetic fracture around internal prosthetic left hip joint, initial encounter; N42.9 Disorder of prostate, unspecified; R32 Unspecified urinary incontinence; M19.90 Unspecified osteoarthritis, unspecified site; G30.9 Alzheimer's disease, unspecified; F02.80 Dementia in other diseases classified elsewhere, unspecified severity, without behavioral disturbance, psychotic disturbance, mood disturbance, and anxiety; J96.11 Chronic respiratory failure with hypoxia; F02.81 Dementia in other diseases classified elsewhere, unspecified severity, with behavioral disturbance; J84.10 Pulmonary fibrosis, unspecified; Z90.79 Acquired absence of other genital organ(s); Z96.649 Presence of unspecified artificial hip joint; Z96.659 Presence of unspecified artificial knee joint; Z88.8 Allergy status to other drugs, medicaments and biological substances; M35.3 Polymyalgia rheumatica; Z99.81 Dependence on supplemental oxygen; Z79.51 Long term (current) use of inhaled steroids; G30.1 Alzheimer's disease with late onset; F41.9 Anxiety disorder, unspecified; Z66 Do not resuscitate; F32.9 Major depressive disorder, single episode, unspecified; J44.9 Chronic obstructive pulmonary disease, unspecified; Z85.46 Personal history of malignant neoplasm of prostate; Z88.5 Allergy status to narcotic agent; Z88.6 Allergy status to analgesic agent; Z79.82 Long term (current) use of aspirin; Z79.52 Long term (current) use of systemic steroids; Z79.899 Other long term (current) drug therapy
CPT/HCPCS: 36415; 73502-26-LT; 73502-LT; 80048; 85025; 85027; 94640; 97110-GP; 97162-GP; 97530-GP; 99285-25; A9270-GY; J7512; J7620-GY